=== PATIENT | male | born 1970 | race Caucasian/White ===

== ENCOUNTER 2022-03-31 05:05 | Emergency (ER) | payer OTHER ==
[2022-03-31 05:14] VITALS: BP 148/96; PULSE 88; RESP 18; TEMP 97.7; BMI 34.4
[2022-03-31] MEDS ORDERED: ACETAMINOPHEN 500 MG TABLET (FP) PO ONE (05:44)
[2022-03-31] MEDS ORDERED: ACETAMINOPHEN 325 MG TABLET (FP) ONE (06:35)
[2022-03-31] MEDS ORDERED: METHOCARBAMOL 500 MG TABLET PO ONE (07:23)
[2022-03-31] MEDS ORDERED: KETOROLAC TROMETHAMINE 30 MG/1 ML VIAL IM ONE (07:23)
[2022-03-31] MEDS ORDERED: KETOROLAC TROMETHAMINE 30 MG/1 ML VIAL ONE (07:57)
[2022-03-31] MEDS ORDERED: METHOCARBAMOL 500 MG TABLET ONE (07:57)
== END 2022-03-31 08:34 | disposition home or self-care (01) ==
LOC: JER 05:05
PROC: 3E0233Z Introduction of Anti-inflammatory into Muscle, Percutaneous Approach (ICD-10-PCS; principal; 2022-03-31)
DX: M54.2 Cervicalgia (principal); R51.9 Headache, unspecified
CPT/HCPCS: 70450-TC; 72125-TC; 99284-25